=== PATIENT | female | born 1990 | race Caucasian/White ===

== ENCOUNTER → 2018-02-14 10:01 | Outpatient (CLI) | payer BC, SELFPAY ==
[2018-02-14 11:54] LABS: Absolute Lymphocyte Count 2.47 X10^3/ul (0.83-4.51); Absolute Neutrophil Count 2.9 X10^3/uL (2.0-7.7); Basophil# 0.03 X10^3/uL; Basophil% 0.5 % (0-1); Eosinophil# 0.13 X10^3/uL; Eosinophils% 2.2 % (0-5); Hemoglobin 13.4 g/dl (12.0-15.0); Lymphocyte # 2.47 X10^3/ul (4.0); Lymphocyte % 42.3 % (19-41); Mean Corp Hgb Conc 32.7 g/gl (32-36); Mean Corpuscular Hgb 29.2 pg (27.0-32.0); Mean Corpuscular Volume 89.3 fL (81-99); Mean Platelet Vol. 9.6 fl (6.2-12.0); Monocyte# 0.28 X10^3/uL; Monocyte% 4.8 % (0-10); Neutrophil # 2.92 X10^3/uL (2.7-7.7); Platelet Count 246 K/mm3 (150-450); RBC Distribution Width CV 13.4 % (11.6-14.6); RBC Distribution Width SD 44.1 fl (35.1-43.9); Red Blood Count 4.59 M/mm3 (4.2-5.4); White Blood Count 5.8 K/mm3 (4.4-11.0)
[2018-02-14 11:58] LABS: POSITIVE COUNT NO; POSITIVE DIFFERENTIAL NO; POSITIVE MORPHOLOGY NO
[2018-02-14 12:14] LABS: Hemoglobin A1c 5.5 % (4.2-6.3)
[2018-02-14 13:49] LABS: ALB/GLOB Ratio 0.9 RATIO (0.9-2.4); AST(SGOT) 24 U/L (15-37); Alanine Aminotransfer ALT/SGPT 41 U/L (13-56); Albumin, Serum 3.4 g/dL (3.2-5.0); Alkaline Phosphatase 60 U/L (45-117); Anion Gap 9 (5-15); BUN 13 mg/dL (7-18); BUN/Creat Ratio 16.3 RATIO (10-20); Calcium,Total 8.4 mg/dL (8.5-10.1); Chloride 107 mmol/L (98-107); EST Glomerular Filtration Rate 93 mL/min (>60); Est Glom Filt Rate - Afr Amer 112 mL/min (>60); Globulin 3.8 g/dL (2.2-4.2); Glucose 91 mg/dL (74-106); Luteinizing Hormone 4.3 mIU/mL; Potassium 4.1 mmol/L (3.5-5.1); Protein, Total 7.2 g/dL (6.4-8.2); Sodium Level 140 mmol/L (136-145); T4 Free Direct 0.87 ng/dL (0.76-1.46); Thyroid Stim Hormone (TSH) 2.66 uIU/mL (0.358-3.74)
[2018-02-15 10:06] LABS: DHEA Sulfate 362.8 ug/dL (84.8-378.0)
[2018-02-15 15:29] LABS: ANTINUCLEAR ANTIBODIES DIRECT Negative (Negative)
[2018-02-16 10:56] LABS: Vitamin D,25 Hydroxy 11.9 ng/mL (29.95-100.01)
== END ==
PROVIDERS: Family Provider Family Medicine; PCP Family Medicine; Visit Provider Family Medicine
DX: R60.9 Edema, unspecified (principal); L70.9 Acne, unspecified; R00.2 Palpitations
CPT/HCPCS: 36415; 80053; 82306; 82627; 83001; 83002; 83036; 83735; 84403; 84439; 84443; 85025; 86038; 82626

== ENCOUNTER → 2018-03-07 08:51 | Outpatient (CLI) | payer BC, SELFPAY ==
[2018-03-07 10:56] LABS: Ferritin 68 ng/mL (8-252)
== END ==
PROVIDERS: Family Provider Family Medicine; PCP Family Medicine; Visit Provider Family Medicine
DX: M79.606 Pain in leg, unspecified (principal)
CPT/HCPCS: 36415; 82728

== ENCOUNTER 2019-03-30 07:35 | Inpatient (IN) | payer BC, SELFPAY ==
[2019-03-30] MEDS: Lactated Ringers 1,000 ML 50 ML IV ×4 (08:15→21:00)
[2019-03-30 08:16] VITALS: BMI 43.3
[2019-03-30 08:39] LABS: Absolute Lymphocyte Count 2.11 X10^3/ul (0.83-4.51); Absolute Neutrophil Count 5.1 X10^3/uL (2.0-7.7); Basophil# 0.02 X10^3/uL; Basophil% 0.3 % (0-1); Eosinophil# 0.06 X10^3/uL; Eosinophils% 0.8 % (0-5); Hematocrit 37.8 % (37-47); Hemoglobin 12.8 g/dl (12.0-15.0); Lymphocyte # 2.11 X10^3/ul (4.0); Lymphocyte % 27.3 % (19-41); Mean Corp Hgb Conc 33.9 g/gl (32-36); Mean Corpuscular Hgb 30.5 pg (27.0-32.0); Mean Platelet Vol. 9.9 fl (6.2-12.0); Monocyte# 0.44 X10^3/uL; Monocyte% 5.7 % (0-10); Neutrophil # 5.06 X10^3/uL (2.7-7.7); Neutrophil % 65.4 % (47-70); Platelet Count 184 K/mm3 (150-450); RBC Distribution Width CV 14.6 % (11.6-14.6); RBC Distribution Width SD 47.7 fl (35.1-43.9); White Blood Count 7.7 K/mm3 (4.4-11.0)
[2019-03-30 08:41] LABS: POSITIVE COUNT NO; POSITIVE DIFFERENTIAL NO; POSITIVE MORPHOLOGY NO
--- NOTE | 2019-03-30 08:43 | HP.PCM_ITS ---
- Problem List (1) 40 weeks gestation of Status: Acute (2) Elevated blood pressure reading Status: Acute (3) Uterine contractions during Status: Acute (4) SROM (spontaneous rupture of membranes) Status: Acute History Date of Admission: 03/30/19 Final KYLER: 03/30/19 Gestational age: 40 Weeks and 0 Days History of this : This is a 28 year-old, G 2, P 0010, at 40 weeks gestational age who presents with possible SROM for clear fluid around 6am and contractions q 5-9 min. Scant blood in blood per patient. Upon admission to L&D her BP was elevated and she had a FHR deceleration for 2-3 min long. She denies BOUCHER, vision changes, upper abd pain, vomiting. She denies h/o cHTN or gHTN. Transfer of care in third trimester. FOB with h/o coarctation of the aorta: echo normal per records, and cards recommended infant f/u 2-3 weeks after . Medical History: Medical History (Last Updated 03/30/19 @ 08:44 by Amarilis Jackson DO) Asthma J45.909 Condyloma acuminata A63.0 History of chlamydia Z86.19 History of viral warts Z86.19 Hx of migraines Z86.69 IBS (irritable bowel syndrome) K58.9 Surgical History: Surgical History (Last Updated 03/30/19 @ 08:44 by Amarilis Jackson DO) H/O dilation and curettage Z98.890 History of adenectomy Z90.89 History of tonsillectomy Z90.89 Allergies No Known Allergies Allergy (Verified 03/30/19 08:16) Home Medications: Home Medications Calcium Carbonate/Vitamin D3 [Calcium 600 + Vit D Tablet] 1 each PO DAILY 03/30/19 Vits [Prenatabs FA] 1 tablet PO DAILY 03/30/19 Smoking Status: Never smoker Alcohol: None Number of Fetus(es): 1 Heart Tracin/mod john paul/+accels/no decels TOCO Analysis: Irregular ctx's History Past Pregnancies: Past Pregnancies Delivery Date Name GA/Weeks Outcome Route Weight Infant Gender Labor Length Anesthesia Delivery Location Provider FOB Labs: GBS neg 1 hr GTT WNL Rh positive, antibody screen neg CBC WNL Hep B neg Hep C neg HIV neg Syphilis neg GC/CT neg Urine cx neg Expected Infant Delivery Method: Spontaneous Vaginal Review of Systems Eyes: Denies: Vision Change HEENT: Denies: Head Aches Gastrointestinal: Denies: Abdominal Pain, Nausea, Vomiting Gynecological: Reports: - - +SROM for clear and blood tinged fluid, +Ctx's Physical Exam General: Alert, No apparent distress HEENT: Atraumatic Lungs: - - No increased resp effort Abdomen: Soft, Non Tender, Gravid Extremities:: Deep tendon reflexes - 2+ Neurological: Deep Tendon Reflexes 2+/4 and Symmetrical, Neuro grossly intact SCREWHEAD STONER AND POLISHER: Normal external genitalia Estimated gestational size: Appropriate for gestational size Presentation: Cephalic Cervix Dilation (cm): 2 - 2-3 per project scientist/Plan All Active Problems (Last Updated 03/30/19 @ 08:44 by Amarilis Jackson DO) 40 weeks gestation of (Acute) Elevated blood pressure reading (Acute) Uterine contractions during (Acute) SROM (spontaneous rupture of membranes) (Acute) This is a 28 year-old, G 2, P 0010, at 40 weeks gestational age who presents with SROM and contractions. BP severe range on admission, and on recheck now mild range. Did not need to treat elevated blood pressure. Cvx 2-3 on admission per RN, and pt was recently 1 cm dilated in the office. She was a transfer for care in 3rd trimester. - Admit for SROM, FHR decel, elevated blood pressure reading, possible labor - GBS neg - Epidural prn - Pre-e labs and p/c ratio. No pre-e symptoms on admission. No h/o cHTN or gHTN. Discussed possible mag gtt if persistent severe range BP's or symptoms - Will start pit for augmentation if needed after recheck
[2019-03-30 08:44] LABS: ROM Internal Control Test YES-OK TO RESULT pt. (Internal QC)
[2019-03-30 08:46] LABS: ROM Patient Test POSITIVE (Negative)
[2019-03-30 08:51] LABS: AST(SGOT) 24 U/L (15-37); Alanine Aminotransfer ALT/SGPT 23 U/L (13-56); Creatinine, Serum 0.71 mg/dL (0.55-1.02); EST Glomerular Filtration Rate 105 mL/min (>60); Est Glom Filt Rate - Afr Amer 127 mL/min (>60); Estimated Creatinine Clearance 112.41 ml/min; Uric Acid 4.8 mg/dL (2.6-6.0)
[2019-03-30 09:09] LABS: International Normalized Ratio 1.1; Prothrombin Time (Protime)PT. 13.9 SECONDS (11.7-14.9)
[2019-03-30 09:10] LABS: Partial Thromboplast Time 24.7 Seconds (24.1-36.2)
[2019-03-30] MEDS: fentaNYL-bupivacaine (epidural) 100 ML BAG EPIDURAL ×2 (10:46→19:58)
[2019-03-30 10:51] LABS: Protein, Urine (Random) 16.8 mg/dL (<11.9); Protein:Creat Ratio 183 mg/g CRE (0-200)
[2019-03-30] MEDS: Mag Hydrox/Al Hydrox/Simeth 30 ML UDC PO (18:51)
[2019-03-30] MEDS: Ondansetron 4 MG/2 ML Vial IV (22:47)
--- NOTE | 2019-03-30 23:45 | PN_ITS ---
Progress Note At bedside to check on pt. Cvx 10/100/+2. felt to be in OA position. FHT 150/mod john paul/+accels/+occasional variable and late decels. [place] w/ ctx's q 2-4 min. Pt has been pushing for about 1 hour. Afebrile with oral thermometer. BP's mild range. Continue current management
--- NOTE | 2019-03-31 | PLAC_PTH ---
PATIENT: EDER AMADOR LOC: WP U#:[id number] AGE/SX: 28/F ROOM: WP005 RE03/30/[address]: Dr. Amarilis Jackson DO : 1990 BED: 1 DIS: 04/02/2019 SPEC #: [id number] RECD: 03/31/19 03:56 STATUS: SANDRA JULIANA #: [id number] MARIANA: 03/31/19 00:[address]: Amarilis Jackson DEPT: SURGICAL PATHOLOGY RECD BY: Antoine Meadows ENTERED: 04/01/19 08:42 SP TYPE: PLACENTA OTHR DR: Dr. Donald Adler MD Tissues: Placenta, NOS Procedures: Surgery Specimen Level V HEADER OPERATION: Vaginal delivery PRE-OP DIAGNOSIS: Isolated maternal temperature, suspected chorioamnionitis TISSUE SUBMITTED: Placenta MICROSCOPIC DIAGNOSIS Placenta: Placental disc - third trimester placenta (599 gm). Membranes - mild acute chorioamnionitis. Umbilical cord - three blood vessels and no pathologic diagnosis. SJ:ita 04/02/19 MICROSCOPIC DESCRIPTION Slides are reviewed. GROSS DESCRIPTION SPECIMEN: PLACENTA / CLINICAL INFORMATION: A. Weight: 3.64 kg B. Gestational Age: 40 weeks C. Sex: Female PLACENTAL WEIGHT (POST FIXATION): 599 gm PLACENTAL DIMENSIONS: 19 x 17 x 3 cm PLACENTAL SHAPE: Usual ovoid PLACENTAL WEIGHT FOR GESTATIONAL AGE: Within 10-99th percentile MEMBRANES - Present A. Insertion: Marginal B. Site of rupture from edge: 5 cm from edge of placental disc C. Color of membrane: Herbert-mercado D. Abnormalities: None UMBILICAL CORD - Present A. Color: Herbert-mercado B. Insertion: Near central C. Length: 53 cm D. Diameter: 1.2 cm E. Number of vessels: Three F. Abnormalities: None PLACENTAL DISC - Present A. Color of surface: Herbert-mercado B. surface abnormalities: None C. Maternal cotyledons: Intact with minimal tears D. Attached retro placental clot: No clot E. Cut surface: Dark red and spongy F. Lesions: None G. Separate clot: Absent SECTIONS SUBMITTED: 1. Umbilical cord ( end inked) 2. Membrane roll 3. Placental disc, and maternal surfaces 4. Placental disc, and maternal surfaces 5. Placental disc, and maternal surfaces AM:ita 04/01/19 TC:2 CPT: 02834
[2019-03-31] MEDS: fentaNYL-bupivacaine (epidural) 100 ML BAG EPIDURAL (00:21)
[2019-03-31] MEDS: Lactated Ringers 1,000 ML 50 ML IV (00:22)
[2019-03-31] MEDS: Oxytocin 30 units/NS 500 ml 30 UNITS/500 ML IV.SOLN 334 UNITS IV (02:41)
[2019-03-31] MEDS: miSOPROStol 200 MCG Tablet 1000 MCG RECTAL (02:57)
--- NOTE | 2019-03-31 03:05 | PCM.OPRPT ---
Problem List (1) 40 weeks gestation of Status: Acute (2) Elevated blood pressure reading Status: Acute (3) Uterine contractions during Status: Acute (4) SROM (spontaneous rupture of membranes) Status: Acute Report of Operation Date of Procedure: 03/31/19 Pre-Operative Diagnosis: 40 week gestation, SROM, labor, new gHTN diagnosed on admission Post-Operative Diagnosis: As above, intolerance to labor, isolated maternal temperature, thick meconium, nuchal cord Surgery/Procedure Performed:: Vacuum assisted vaginal delivery Description of Surgical Findings:: Patient was complete and pushing for around 4 hours. She had an isolated elevated temperature that then resolved to normal. Infant in OA position. There were late decelerations with pushing noted. FHT in between late decelerations showed moderate variability with accelerations. Patient then began having abdominal pain different than her contraction pain that was new, and fundus was tender on palpation. Ampicillin and gentamicin were ordered for suspected chorioamnionitis given her new symptom with an isolated maternal temperature. With good maternal effort, station was remaining at +2 with no further descent despite this good pushing effort. Risks of a vacuum assisted vaginal delivery were discussed with the patient including but not limited to scalp laceration, cephalohematoma, subgaleal hematoma, and intracranial hemorrhage. Alternatives of a VAVD were also discussed. Patient desired a vacuum assisted vaginal delivery, and verbal consent was obtained after review of r/b/a. The vacuum was placed, and gentle traction was used through three contractions with release of the vacuum in between each contraction. There were no pop offs of the vacuum. With the three contractions the head of the infant was delivered in OA position, followed by the body without any force or delay. There was a loose nuchal cord x 1 that was reduced. VFI delivered atraumatically and placed on maternal abdomen. Thick meconium was noted at the time of the delivery. Cord was clamped and cut immediately. Cord gases were obtained but only venous was able to be obtained. The placenta was delivered intact with fundal massage. The placenta was normal in appearance with a 3 vessel cord. The placenta was sent for culture. Uterus was explored x 1 and noted to be slightly boggy, but with no retained products. Pitocin was started, as well as uterine massage. Uterus was then firm and bleeding hemostatic. A 2nd degree perineal laceration was repaired in usual sterile fashion. Cytotec 1000 mcg was placed rectally. Type of Anesthesia:: Epidural Specimen's removed: Placenta Drains: Arroyo Estimated Blood Loss (mL): 300 Description of Procedure: See above for description of procedure Grafts/Implants Used: None - Complications None - Admit VTE Documentation VTE Present on Admission: No VTE Mechan Device Prophylaxis: None VTE Pharm Prophylaxis ordered?: No Vaginal Delivery Maternal Presentation: Active Labor, Spontaneous Rupture of Membranes Amniotic Membrane Rupture Type: Spontaneous at home Amniotic Fluid Description: Clear - At time of SROM, Thick meconium - At time of delivery Final KYLER: 03/30/19 Gestational age: 40 Weeks and 1 Days Date of Procedure: 03/31/19 Surgery/ Procedure Performed: Vacuum Assisted Vaginal Delivery Type of Anesthesia: Epidural Presentation: Vertex - OA Placental Delivery Description: Expressed Placenta Disposition: Sent to Pathology - Sent for culture Cord Vessel Description: 3 Vessels Nuchal Cord Compression: Without compression Cord Gases drawn per routine: VBG Cord Entanglement: Around neck x 1, loose Drain: Arroyo to straight drain Estimated Blood Loss: 300 Infant A gender: Female (1 minute): 8 (5 minute): 9 Episiotomy Description: None Laceration: 2nd degree Medications given after delivery: IV Pitocin, - - Cytotec Complications: None Baby B - Information Amniotic Membrane Rupture Type: Spontaneous Presentation: Vertex - OA - Operative Information Cord Entanglement: Around neck x 1, loose Cord Vessel Description: 3 Vessels B gender: Female (1 minute): 8 (5 minute): 9
[2019-03-31] MEDS: Oxytocin 30 units/NS 500 ml 30 UNITS/500 ML IV.SOLN 167 UNITS IV (03:11)
--- NOTE | 2019-03-31 03:16 | OP.PCM_ITS ---
Problem List (1) 40 weeks gestation of Status: Acute (2) Elevated blood pressure reading Status: Acute (3) Uterine contractions during Status: Acute (4) SROM (spontaneous rupture of membranes) Status: Acute Report of Operation Date of Procedure: 03/31/19 Pre-Operative Diagnosis: 40 week gestation, SROM, labor, new gHTN diagnosed on admission Post-Operative Diagnosis: As above, intolerance to labor, isolated maternal temperature, thick meconium, nuchal cord Surgery/Procedure Performed:: Vacuum assisted vaginal delivery Description of Surgical Findings:: Patient was complete and pushing for around 4 hours. She had an isolated eleva candelaria temperature that then resolved to normal. in OA position. There were late decelerations with pushing noted. FHT in between late decelerations showed moderate variability with accelerations. Patient then began having abdominal pain different than her contraction pain that was new, and fundus was tender on palpation. Ampicillin and gentamicin were ordered for suspected chorioamnionitis given her new symptom with an isolated maternal temperature. With good maternal effort, infant station was remaining at +2 with no further descent despite this good pushing effort. Risks of a vacuum assisted vaginal delivery were discussed with the patient including but not limited to scalp laceration, cephalohematoma, subgaleal hematoma, and intracranial hemorrhage. Alternatives of a VAVD were also discussed. Patient desired a vacuum assisted vaginal delivery, and verbal consent was obtained after review of r/b/a. The vacuum was placed, and gentle traction was used through three contractions with release of the vacuum in between each contraction. There were no pop offs of the vacuum. With the three contractions the head of the infant was delivered in OA position, followed by the body without any force or delay. There was a loose nuchal cord x 1 that was reduced. VFI delivered atraumatically and placed on maternal abdomen. Thick meconium was noted at the time of the delivery. Cord was clamped and cut immediately. Cord gases were obtained but only venous was able to be obtained. The placenta was delivered intact with fundal massage. The placenta was normal in appearance with a 3 vessel cord. The placenta was sent for culture. Uterus was explored x 1 and noted to be slightly boggy, but with no retained products. Pitocin was started, as well as uterine massage. Uterus was then firm and bleeding hemostatic. A 2nd degree perineal laceration was repaired in usual sterile fashion. Cytotec 1000 mcg was placed rectally. Type of Anesthesia:: Epidural Specimen's removed: Placenta Drains: Arroyo Estimated Blood Loss (mL): 300 Description of Procedure: See above for description of procedure Grafts/Implants Used: None - Complications None - Admit VTE Documentation VTE Present on Admission: No VTE Mechan Device Prophylaxis: None VTE Pharm Prophylaxis ordered?: No Vaginal Delivery Maternal Presentation: Active Labor, Spontaneous Rupture of Membranes Amniotic Membrane Rupture Type: Spontaneous at home Amniotic Fluid Description: Clear - At time of SROM, Thick meconium - At time of delivery Final KYLER: 03/30/19 Gestational age: 40 Weeks and 1 Days Date of Procedure: 03/31/19 Surgery/ Procedure Performed: Vacuum Assisted Vaginal Delivery Type of Anesthesia: Epidural Presentation: Vertex - OA Placental Delivery Description: Expressed Placenta Disposition: Sent to Pathology - Sent for culture Cord Vessel Description: 3 Vessels Nuchal Cord Compression: Without compression Cord Gases drawn per routine: VBG Cord Entanglement: Around neck x 1, loose Drain: Arroyo to straight drain Estimated Blood Loss: 300 A gender: Female (1 minute): 8 (5 minute): 9 Episiotomy Description: None Laceration: 2nd degree Medications given after delivery: IV Pitocin, - - Cytotec Complications: None Baby B - Information Amniotic Membrane Rupture Type: Spontaneous Presentation: Vertex - OA - Operative Information Cord Entanglement: Around neck x 1, loose Cord Vessel Description: 3 Vessels B gender: Female (1 minute): 8 (5 minute): 9
--- NOTE | 2019-03-31 03:28 | NURSING ---
ABG unable to be collected per , [facility] sent
[2019-03-31 03:55] LABS: Pathology Specimen OB SEE PATHOLOGY REPORT
[2019-03-31] MEDS: 0.9% Saline Lock 10 ML Syringe IV (04:30)
[2019-03-31] MEDS: Ibuprofen 600 MG Tablet PO ×3 (07:32→23:30)
[2019-03-31 08:10] VITALS: BP 124/79; PULSE 99; RESP 18; TEMP 36.6
[2019-03-31] MEDS: Senna/Docusate Sodium 1 Tablet PO (10:20)
[2019-03-31] MEDS: Acetaminophen 500 MG Tablet 1000 MG PO ×2 (10:20→21:13)
[2019-03-31 12:00] VITALS: BP 120/76; PULSE 98; RESP 18; TEMP 36.6
[2019-03-31 15:50] VITALS: BP 127/78; PULSE 88; RESP 18; TEMP 36.9; O2SAT 97
[2019-03-31 20:51] VITALS: BP 143/77; PULSE 97; RESP 16; TEMP 36.5
[2019-04-01 03:45] VITALS: BP 123/85; PULSE 80; RESP 18; TEMP 36.5
--- NOTE | 2019-04-01 08:43 | PCM.PN.OB ---
Patient Problems: Active and Suspected Problems (Last Updated 03/30/19 @ 08:44 by Amarilis Jackson DO) 40 weeks gestation of (Acute) Elevated blood pressure reading (Acute) Uterine contractions during (Acute) SROM (spontaneous rupture of membranes) (Acute) Subjective: Doing well per patient and nursing staff. Ambulating and taking PO without difficult. Voiding and passing flatus. , getting assistance from services. Denies any headache, visual changes, chest pain, SOB, or increased vaginal bleeding. - Physical Exam General: Alert, Oriented x3, Cooperative HEENT: Atraumatic, Normocephalic Neck: Trachea Midline Lungs: Clear to auscultation, Normal air movement, No rhonchi, No wheeze Cardiovascular: Regular rate, Regular Rhythm, No murmurs Abdomen: Bowel Sounds Present, - - Fundus firm 3 below U Extremities: Edema - +1 BLE edema. No clonus. +2/4 BLE patellar DTR Neurological: Deep Tendon Reflexes 2+/4 and Symmetrical Psych/Mental Status: Normal Affect, Appropriate Vital Signs Temp Pulse Resp BP Pulse Ox 97.7 F L 80 18 123/85 H 97 04/01/19 03:45 04/01/19 03:45 04/01/19 03:45 04/01/19 03:45 03/31/19 15:50 Oxygen Delivery Method Room Air Weight: 268 lb 8.368 oz Body Mass Index (BMI) 43.3 Intake and Output for Last 24 Hours 03/30/19 03/31/19 04/01/19 23:59 23:59 23:59 Intake Total 2976 / 2976 3199 / 3199 Output Total 650 / 650 1800 / 1800 Balance 2326 / 2326 1399 / 1399 Medical Necessity - Tobacco Use Smoking Status: Never smoker Assessment/Plan All Active Problems (Last Updated 03/30/19 @ 08:44 by Amarilis Jackson DO) 40 weeks gestation of (Acute) Elevated blood pressure reading (Acute) Uterine contractions during (Acute) SROM (spontaneous rupture of membranes) (Acute) A: PPD #1 , vacuum assisted P: 1) Routine and instructions 2) BP with one elevated overnight, normal this am. Reviewed Pre-e warning signs. Will continue to monitor BP. 3) Planning D/C home tomorrow.
[2019-04-01] MEDS: Ibuprofen 600 MG Tablet PO ×2 (11:13→20:05)
[2019-04-01 11:15] VITALS: BP 131/80; PULSE 85; RESP 12; TEMP 36.6; O2SAT 97
[2019-04-01] MEDS: Acetaminophen 500 MG Tablet 1000 MG PO ×2 (12:32→21:49)
[2019-04-01 14:55] VITALS: BP 136/94; PULSE 92; TEMP 36.9; O2SAT 97
--- NOTE | 2019-04-01 15:46 | CASEMGMT ---
Social Work Assessment Labor and Delivery Unit Date of Referral: 03/31/2019 Time of Referral: 613 Referred By: Dr. Davila Date of Intervention: 04/01/2019 Time of Intervention: 1500 Reason for Referral: resources; father of baby (FOB) minimally involved. History obtained from: mother of baby (MOB), medical records, and with MOB's permission MOB's sister Josephine also present. Household composition: MOB lives in own apartment, which is located on the same property as MOB's parents home. Home situation is reported to be safe and adequate. Patient's parent/guardian status: MOB is 28 year old single female Hilary Chou. FOB is reported to be a Eduard Smead. MOB and FOB used to be high school sweethearts, long time friends, and then reconnected last year for a short time. FOB's level of involvement is to be determined as MOB reports has set some limits with FOB who has a history of drug abuse issues. FOB has 3 other children ages 3 and under from another woman. Currently FOB is caring for the two oldest [employer] while the youngest is living with a grandmother. Baby born this admission is the first child for MOB, and the first for MOB and FOB together. Baby to be named Gentry Chou. Medical History: MOB is G2, P0 to 1 after delivering Gentry. care started early at 7 weeks and adequate thereafter. MOB transferred care from a [facility] doctor in [facility] to the [place] office at 36 weeks due to MOB working from home and the [place] office being in closer proximity to home and family. MOB with history with a 9 week loss. Maternal history of migraines. Baby born at 40 weeks gestation, weighed 8 pounds 5 ounces, with Apgars 8 and 9 at 1 and 5 minutes of life. Educational Status: SHAHAB is college educated and has a bachelors degree. No issues with reading, writing, or learning comprehension. 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 Infant Supplies: MOB reports to have all needed supplies including car seat, crib, pack-n-play with bassinet attachment and a cradle. Adequate clothing, diapers and wipes in place. Breast pump in place. Childcare/Caregiver(s): MOB with help from family, and then has a daycare lined up when SHAHAB returns to work. Transportation: No issues. Programs/Agencies Involved: No agency involvement. Plans to follow with Dr. Shaina Gresham at [facility] [place] office. Reports agreement to [facility] referral. Children Services/Legal Issues: None reported or indicated for MOB. RONNELL is currently working with children services due to issues with the other children's mother. RONNELL has had some legal issues in the past related to drug issues. Behavioral Health Issues: Mental Health History: MOB reports history of some anxiety though no formal diagnosis. Nor reports of any suicidal thought. NO reported treatment history. Noted in the medical record MOB was at one time prescribed Wellbutrin. Substance Use History: None reported or indicated for MOB. Family History: MOB with a maternal uncle with alcohol issues. SHAHAB's sister Josephine has Generalized Anxiety Disorder. Drug Screens: no drug screens noted in the care record or at time of delivery. Family/Social Stressors: Unplanned but accepted . SHAHAB is a single mother. FOB involvement is tenuous and level of involvement moving foreword will be directly related to how RONNELL is doing with sobriety. SHAHAB reports RONNELL has been sober for 3 months at present. SHAHAB has been working from home for the last month, so has had a decrease in social interactions. Support Systems: SHAHAB reports to live very close to her parents, close enough that the parents can help MOB out with baby whenever needed. SHAHAB's mother is off of work for a month and then SHAHAB's sister is in from [place], [place] for month. It is reported that SHAHAB has a good family and friend network. Depression/Shaken Baby/Safe Sleeping : Educated to safe sleeping. Literature on shaken baby prevention provided. mood and anxiety disorder educated provided, risk factors reviewed, signs and symptoms, as well as coping discussed. ASSESSMENT: Met with MOB, MOB's sister and MOB's mother. SHAHAB's mom left to go home when social work arrived. MOB verbalized that it is okay for the sister to stay in room during social work visit. MOB pleasant, talkative, and spontaneous during conversation. Nondefensive and appearing interested in resources and education. MOB with appropriate mood and affect overall, did become teary eyed when talking about sometimes feeling lonely. Talked through ways to get MOB out of the house, as well as importance of letting support system know when having a bad day. MOB reports to have boundaries in place with FOB, that MOB is making decisions for Baby Olney's safety and wellbeing, in regards to FOB's level of involvement moving forward. MOB reports to feel a positive connectin with the baby, and to be happy about the baby. MOB held baby gently, appropriate to be bonding as evidenced by touching baby, smiling at baby, and looking at baby. MOB enfolded baby into arms, and was calm in how handled the baby. MOB expressed appreciation for visit and information offered today. [facility] referral to be done with intent for MOB to hear more from [facility] on what is offered and then make final decision as to whether to accept services. PLAN: MOB and baby to home when ready for discharge. [facility] resources list provided. depression packet given including some local and online supports available to MOB. [facility] referral to be made. -JACQUE Herzog, PROBATE JUDGE
[2019-04-01 19:56] VITALS: BP 137/88; PULSE 98; RESP 18; TEMP 37.2; O2SAT 94
[2019-04-01] MEDS: Dibucaine 30 GM Tube 1 APPLIC TOPICAL (20:37)
[2019-04-02 01:19] VITALS: BP 147/83; PULSE 84; RESP 16; TEMP 36.6; O2SAT 95
--- NOTE | 2019-04-02 07:24 | PCM.PN.OB ---
Patient Problems: Active and Suspected Problems (Last Updated 03/30/19 @ 08:44 by Amarilis Jackson DO) 40 weeks gestation of (Acute) Elevated blood pressure reading (Acute) Uterine contractions during (Acute) SROM (spontaneous rupture of membranes) (Acute) Subjective: Pt doing well. No CP, palpitations, leg pain. She states at times she feels she has to take a deep breath in, but no current SOB. Ambulating without lightheadedness or dizziness. Voiding without difficulty. Aki reg diet without nausea or vomiting. Lochia normal. Pain controlled. without difficulty - Physical Exam General: Alert, No apparent distress HEENT: Atraumatic Lungs: - - No increased resp effort Abdomen: Soft, Non Tender, - - FF Extremities: No Calf Tenderness Skin: No rashes Neurological: Neuro grossly intact Psych/Mental Status: Normal Affect, Appropriate Vital Signs Temp Pulse Resp BP Pulse Ox 97.9 F 84 16 147/83 H 95 04/02/19 01:19 04/02/19 01:19 04/02/19 01:19 04/02/19 01:19 04/02/19 01:19 Oxygen Delivery Method Room Air Weight: 268 lb 8.368 oz Body Mass Index (BMI) 43.3 Intake and Output for Last 24 Hours 03/31/19 04/01/19 04/02/19 23:59 23:59 23:59 Intake Total 3199 / 3199 Output Total 1800 / 1800 Balance 1399 / 1399 Medical Necessity - Tobacco Use Smoking Status: Never smoker Assessment/Plan All Active Problems (Last Updated 03/30/19 @ 08:44 by Amarilis Jackson DO) 40 weeks gestation of (Acute) Elevated blood pressure reading (Acute) Uterine contractions during (Acute) SROM (spontaneous rupture of membranes) (Acute) PPD#2 s/p VAVD - Only an occasional mild range BP's. Antihypertensives not indicated at this time - Doing well and pt desires to go home - D/c home today. Discharge instructions reviewed and when to follow up
--- NOTE | 2019-04-02 07:28 | DCINST_ITS ---
Discharge Diet: No Restrictions Discharge Activity: May Shower, May Take a Tub Bath May resume sexual activity in: 6 weeks Weight Bearing Status: Full weight bearing Lifting Restrictions: None Call your doctor if you observe: Fever of 101 or Higher, Inability to urinate, Inability to have a bowel movement, Using more than one pad per hour, Shortness of breath, Dizziness, Chest pain, Increased palpitations (irregular heartbeat), Calf discomfort, Uncontrolled pain Instructions: After a Vaginal Additional Instructions: If you experience any of the following, contact your healthcare provider. * Bleeding that soaks a pad every hour for 2 hours * Fever 100.4 or higher * Unrelieved incision or abdominal pain * Swelling, redness, discharge or bleeding from your incision or episiotomy site * Your incision begins to separate * Problems urinating (including inability to urinate or burning while urinating). * Visual changes * Severe headache * Flu-like symptoms * Pain or redness in one of both of your breasts * Pain, warmth, tenderness or swelling in your legs, especially the calf area * Frequent nausea and vomiting * Symptoms of depression or anxiety If you experience any of the following, call 911 or go to the nearest Emergency Room. * Chest pain * Problems breathing * Seizure activity * Partial or complete paralysis of a body part, slurred speech, weakness or drooping of the face, or a sudden inability to walk or hold your balance Allergies/Adverse Reactions: Allergies No Known Allergies Allergy (Verified 03/30/19 08:16) Medications to take at Discharge Calcium Carbonate/Vitamin D3 [Calcium 600 + Vit D Tablet] 1 each PO DAILY 03/30/19 Vits [Prenatabs FA] 1 tablet PO DAILY 03/30/19 Please Follow Up With: Amarilis Jackson DO When: 6 weeks for visit. In 1-2 weeks if you desire as well Primary Care Physician: Donald Adler MD [Primary Care Provider] - Test Results: Test results from this visit will be discussed in further detail at your follow- up appointment, if applicable. Proposed Discharge Date: 04/02/19
[2019-04-02] MEDS: Ibuprofen 600 MG Tablet PO (08:40)
[2019-04-02 08:47] VITALS: BP 140/90; PULSE 83; RESP 18; TEMP 36.7; O2SAT 99
[2019-04-02] MEDS: Acetaminophen 500 MG Tablet 1000 MG PO (10:29)
--- NOTE | 2019-04-02 11:59 | CASEMGMT ---
Social Work Labor and Delivery Unit [facility] referral made today as per mother of baby (MOB) stated consent. Referral made through the [facility]'s secure online web based referral system. No other services requested or indicated. Referral to social work assessment dated 04-01-2019 for details of social work interventions. -CHAVO Herzog, BIOMETRICS INSTRUCTOR
[2019-04-02 12:23] VITALS: BP 143/86; BP 145/90; PULSE 87; RESP 18; TEMP 36.8; O2SAT 98
== END 2019-04-02 14:50 | disposition home or self-care (01) | DRG 805 ==
PROVIDERS: Admitting Provider Obstetrics & Gynecology; Family Provider Family Medicine; PCP Family Medicine; Referring Provider Obstetrics & Gynecology; Visit Provider Obstetrics & Gynecology
DX: O76 Abnormality in fetal heart rate and rhythm complicating labor and delivery (principal); O41.1230 Chorioamnionitis, third trimester, not applicable or unspecified; Z37.0 Single live birth; O70.1 Second degree perineal laceration during delivery; O13.4 Gestational [pregnancy-induced] hypertension without significant proteinuria, complicating childbirth; O77.0 Labor and delivery complicated by meconium in amniotic fluid; O69.81X0 Labor and delivery complicated by cord around neck, without compression, not applicable or unspecified; O99.213 Obesity complicating pregnancy, third trimester; E66.01 Morbid (severe) obesity due to excess calories; Z3A.40 40 weeks gestation of pregnancy; M79.7 Fibromyalgia
CPT/HCPCS: 59025; 59050; 82565; 82570; 84112; 84156; 84450; 84460; 84550; 85025; 85610; 85730; 86850; 86900; 88307; 99218; J7120; A4216; G0378; J2405

== ENCOUNTER → 2019-07-12 12:01 | Outpatient (CLI) | payer BC, SELFPAY | LOC: MFPLAB 12:01 → LABSPEC 15:14 | PROVIDERS: Family Provider Family Medicine; PCP Family Medicine; Referring Provider Family Medicine; Visit Provider Family Medicine | DX: R19.7 Diarrhea, unspecified (principal) | CPT/HCPCS: 87493 ==

== ENCOUNTER → 2021-01-21 17:49 | Outpatient (CLI) | payer BC, SELFPAY | PROVIDERS: PCP Family Medicine; Referring Provider Family Medicine; Visit Provider Family Medicine | DX: Z20.822 Contact with and (suspected) exposure to COVID-19 (principal) | CPT/HCPCS: 87635; U0002 ==

== ENCOUNTER 2021-10-25 12:37 | Outpatient (CLI) | payer BC, SELFPAY ==
--- NOTE | 2021-10-25 12:43 | RAD_ITS ---
STUDY: X-RAY - CERVICAL SPINE REASON FOR EXAM: Female, 30 years old. DDD EVAL . Fibromyalgia. TECHNIQUE: 5 view(s) of the cervical spine were obtained. COMPARISON: None FINDINGS: Normal anterior atlantoaxial articulation. Normal odontoid process. There is straightening of the normal cervical lordosis. Normal vertebral bodies and endplates. Normal disc space heights. Normal visualized intervertebral neuroforamina. The soft tissue structures are unremarkable. RAD/Cerv Spine 4 or 5 Views IMPRESSION: There is straightening of the normal cervical lordosis. Electronically Signed: Papa Lewis MD at 13:25 EST , Service support ,
== END 2021-10-25 23:59 | disposition home or self-care (01) ==
LOC: MTRAD 12:41
PROVIDERS: PCP Family Medicine; Referring Provider Physical Medicine & Rehabilitation; Visit Provider Physical Medicine & Rehabilitation
DX: M79.7 Fibromyalgia (principal)
CPT/HCPCS: 72050; 72052

== ENCOUNTER 2021-11-22 16:29 | Outpatient (CLI) | payer BC, SELFPAY ==
--- NOTE | 2021-11-22 16:34 | RAD_ITS ---
STUDY: X-RAY CHEST REASON FOR EXAM: Female, 31 years old. COUGH TECHNIQUE: PA and lateral views of the chest. COMPARISON: None. FINDINGS: The lungs are clear and expanded. There is no demonstrated pleural abnormality. Normal size heart. Normal mediastinum and corbin. Normal visualized pulmonary arteries. Normal visualized aortic arch and descending thoracic aorta. Normal visualized thoracic spine. Normal visualized ribs, clavicles, and shoulders. There is no demonstrated abnormality of the visualized soft tissue structures of the upper abdomen. RAD/Chest PA and Lateral IMPRESSION: Normal x-ray examination of the chest. Electronically Signed: Winston Mccarthy MD at 10:19 EST ,
== END 2021-11-22 23:59 | disposition short-term general hospital (02) ==
PROVIDERS: PCP Family Medicine; Referring Provider Nurse Practitioner Family; Visit Provider Nurse Practitioner Family
DX: R05.9 Cough, unspecified (principal)
CPT/HCPCS: 71046

== ENCOUNTER → 2022-08-19 | Outpatient (CLI) | payer BC, SELFPAY ==
--- NOTE | 2022-08-19 12:40 | RAD_ITS ---
STUDY: X-RAY - RIGHT ANKLE REASON FOR EXAM: Female, 31 years old. ankle pain/injury TECHNIQUE: 3 view(s) of the ankle. COMPARISON: None. FINDINGS: Normal visualized distal tibia and fibula. Normal medial and lateral malleoli. Normal tibiotalar articulation and ankle mortise. Normal visualized talus and calcaneus. The visualized subtalar, talonavicular, calcaneocuboid and tarsal articulations are normal. The soft tissue structures demonstrate mild bimalleolar soft tissue swelling RAD/Ankle min 3 Views IMPRESSION: Mild bimalleolar soft tissue swelling. Electronically Signed: Keven Clifford MD, VIKKI at 13:24 EDT ,
== END | disposition home or self-care (01) ==
LOC: MTRAD 12:38
PROVIDERS: PCP Family Medicine; Referring Provider Nurse Practitioner Family; Visit Provider Nurse Practitioner Family
DX: M25.579 Pain in unspecified ankle and joints of unspecified foot (principal)
CPT/HCPCS: 73610

== ENCOUNTER → 2025-03-31 | Outpatient (CLI) | payer OTHER, SELFPAY ==
[2025-03-31 12:05] LABS: Anion Gap 10 (5-15); BUN 17 mg/dL (4-19); BUN/Creat Ratio 22.9 RATIO (10-20); Carbon Dioxide 21.7 mmol/L (21.0-32.0); Chloride 106 mmol/L (98-108); Creatinine, Serum 0.75 mg/dL (0.70-1.20); EST Glomerular Filtration Rate 109 (>60); Glucose 112 mg/dL (70-99); Potassium 4.2 mmol/L (3.3-5.1); Sodium Level 138 mmol/L (133-145)
[2025-03-31 13:24] LABS: Cholesterol 199 mg/dL (<=200); High Density Lipoprotein 50 mg/dL; Low Density Lipoprotein Calc. 128 mg/dL; Triglycerides 108 mg/dL; Very Low Density Lipoprotein 22 mg/dL (5-40); cholesterol:hdl ratio screen 4.02
== END | disposition home or self-care (01) ==
LOC: MFPLAB 09:12
PROVIDERS: PCP Family Medicine; Referring Provider Family Medicine; Visit Provider Family Medicine
DX: Z00.00 Encounter for general adult medical examination without abnormal findings (principal)
CPT/HCPCS: 36415; 80048; 80061